=== PATIENT | female | born 1985 | race Two or more races ===

== ENCOUNTER 2017-06-28 21:03 | Emergency (ER) | payer OTHER ==
[~2017-06-28] VITALS: Ht 165.1 cm; Wt 61.2 kg
--- NOTE | 2017-06-28 21:05 | NUR ---
TO BED 18 A 31 YO FEMALE PATIENT BB SELF; VAGINAL BLEEDING/ DISCHARGE X 4 DAYS. VSS. NAD NOTED. NONDIAPHORETIC. COMFORT MEASURES RENDERED.
[2017-06-28 21:09] VITALS: BP 113/72
== END 2017-06-29 00:29 | disposition left against medical advice (07) ==
LOC: ER 21:04
DX: Z53.21 Procedure and treatment not carried out due to patient leaving prior to being seen by health care provider (principal)
CPT/HCPCS: A4606; Z7610